=== PATIENT | male | born 1970 | race Caucasian/White ===

== ENCOUNTER 2017-07-05 11:15 | Observation (INO) | payer MEDICAID ==
[~2017-07-05] VITALS: Ht 185.4 cm; Wt 91.4 kg
[2017-07-05 12:00] LABS: BASOPHILS % (AUTO) 0 % (0-1); EOSINOPHILS # (AUTO) 0.19 x10^3/uL (0-0.4); EOSINOPHILS % (AUTO) 2 % (1-7); LYMPHOCYTES # (AUTO) 1.46 x10^3/uL (1-3.4); LYMPHOCYTES % (AUTO) 18 % (22-44); MD NO; MEAN CORPUSCULAR HEMOGLOBIN 31.9 pg (27.5-34.5); MEAN CORPUSCULAR VOLUME 93.8 fL (81-97); MONOCYTES # (AUTO) 0.46 x10^3/uL (0.2-0.8); MONOCYTES % (AUTO) 6 % (2-9); NEUTROPHILS # (AUTO) 5.84 x10^3/uL (1.8-6.8); NEUTROPHILS % (AUTO) 73 % (42-75); PLATELET COUNT 232 x10^3/uL (130-400); RED BLOOD COUNT 5.24 x10^6/uL (4.38-5.82); RED CELL DISTRIBUTION WIDTH 13.7 % (9.4-14.8)
[2017-07-05 12:12] LABS: ANION GAP 7 mmol/L (5-15); CALCIUM 8.3 mg/dL (8.5-10.1); CHLORIDE 107 mmol/L (98-107)
[2017-07-05 12:13] LABS: ACETAMINOPHEN < 2 mcg/mL (10-30); SALICYLATE LEVEL < 1.7 mg/dL (2.8-20.0)
[2017-07-05 12:45] LABS: AMPHETAMINE SCREEN, URINE Negative (Negative); BARBITURATE SCREEN, URINE Negative (Negative); BENZODIAZEPINE SCREEN, URINE Negative (Negative); CANNABINOID SCREEN, URINE Negative (Negative); COCAINE SCREEN, URINE Negative (Negative); METHADONE SCREEN, URINE Negative (Negative); OPIATE SCREEN, URINE Negative (Negative)
[2017-07-05] MEDS ORDERED: LORazepam 1MG TABLET ONE (16:44)
[2017-07-05] MEDS: LORazepam 1MG TABLET PO PRN (16:46)
[2017-07-05] MEDS ORDERED: ACETAMINOPHEN 325 MG TABLET PO PRN (17:00)
[2017-07-05] MEDS ORDERED: ONDANSETRON ODT 4 MG PO PRN (17:00)
[2017-07-05 18:59] VITALS: BP 99/61
[2017-07-06 07:57] VITALS: BP 100/60
[2017-07-06] MEDS: LORazepam 1MG TABLET PO PRN (15:09)
[2017-07-06 19:15] VITALS: BP 107/63
[2017-07-07 07:30] VITALS: BP 99/61
== END 2017-07-07 17:45 ==
LOC: ED 12:10 → EDIP 16:37 → 2N 18:49
PROVIDERS: ADMIT Internal Medicine; ATTEND Internal Medicine
DX: R45.851 Suicidal ideations (principal); F41.9 Anxiety disorder, unspecified; F32.9 Major depressive disorder, single episode, unspecified; I10 Essential (primary) hypertension; F12.90 Cannabis use, unspecified, uncomplicated; F17.210 Nicotine dependence, cigarettes, uncomplicated
CPT/HCPCS: 36415; 80048; 80307; 80329; 82040; 85025; 99285; G0378; G0480

== ENCOUNTER 2018-06-01 08:20 | Emergency (ER) | payer MEDICAID, OTHER ==
[~2018-06-01] VITALS: Ht 185.4 cm; Wt 109.1 kg
--- NOTE | 2018-06-01 09:14 | NUR ---
Assumed care of patient. C/O WILLARD, non-productive cough, and generalized body aches. Will continue to monitor.
[2018-06-01] MEDS ORDERED: KETOROLAC 30 MG/1 ML ONE (09:26)
[2018-06-01] MEDS ORDERED: KETOROLAC 30 MG/1 ML IM ONE (09:30)
[2018-06-01 09:46] LABS: RAPID INFLUENZA A POSITIVE (Negative); RAPID INFLUENZA B Negative (Negative)
[2018-06-01 10:16] VITALS: BP 115/78
== END 2018-06-01 10:18 | disposition home or self-care (01) ==
LOC: ED 10:13
DX: J09.X2 Influenza due to identified novel influenza A virus with other respiratory manifestations (principal); I10 Essential (primary) hypertension; F32.9 Major depressive disorder, single episode, unspecified
CPT/HCPCS: 71046; 87400; 96372; 99284; J1885